=== PATIENT | female | born 1960 | race Caucasian/White ===

== ENCOUNTER 2017-09-17 11:05 | Emergency (ER) | payer SELFPAY ==
[~2017-09-17] VITALS: Ht 157.5 cm; Wt 86.2 kg
[~2017-09-17 11:05] MED LIST: ASPI81EC PO; CEPH500 PO; ESTR2 PO; HRT; HYDCHL25; LISHYD2012 PO; LORA10ER; NAPR250 PO; SIMV10 PO
[2017-09-17 12:39] LABS: Alanine Aminotransfer (ALT/SGP 50 U/L (12-78); Albumin/Globulin Ratio 1.3 (0.8-1.8); Alk Phos 41 U/L (50-136); Anion Gap 10 mmol/L (6-16); Aspartate Aminotrans (AST/SGOT 34 U/L (12-37); Bilirubin, Total 0.5 mg/dL (0.1-1.0); Blood Urea Nitrogen 12 mg/dL (8-24); Bun/Creatinine Ratio 22.1 (12.0-20.0); CO2, Blood 26 mmol/L (21-32); Chloride, Blood 103 mmol/L (98-108); Creatinine, Blood 0.54 mg/dL (0.40-1.00); Globulin, Blood 3.1 g/dL (2.2-4.0); Glomerular Filtration Rate >60 (60-); Glucose, Blood 92 mg/dL (70-99); Potassium, Blood 3.6 mmol/L (3.5-5.5); Sodium, Blood 139 mmol/L (136-145); Total Protein, Blood 7.1 g/dL (6.4-8.2); Troponin I <0.015 ng/mL (0.000-0.040)
[2017-09-17 14:32] LABS: BASOPHILS ABSOLUTE AUTO 0.03 K/mm3 (0.00-0.23); BASOPHILS PERCENT AUTO 0 % (0-2); EOSINOPHILS ABSOLUTE AUTO 0.12 K/mm3 (0.00-0.68); EOSINOPHILS PERCENT AUTO 2 % (0-6); Hematocrit 39.9 % (33.0-51.0); Hemoglobin 14.2 g/dL (11.5-16.0); IMMATURE GRAN ABSOLUTE AUTO 0.02 K/mm3 (0.00-0.10); IMMATURE GRAN PERCENT AUTO 0 % (0-1); LYMPHOCYTES ABSOLUTE AUTO 3.06 K/mm3 (0.84-5.20); LYMPHOCYTES PERCENT AUTO 45 % (21-46); MONOCYTES ABSOLUTE AUTO 0.42 K/mm3 (0.16-1.47); MONOCYTES PERCENT AUTO 6 % (4-13); Mean Corpuscular HGB 30.7 pg (26.0-34.0); Mean Corpuscular HGB Conc 35.6 g/dL (31.5-36.5); Mean Corpuscular Volume 86 fL (80-100); Mean Platelet Volume 9.6 fL (9.1-12.4); NEUTROPHILS ABSOLUTE AUTO 3.18 K/mm3 (1.96-9.15); NEUTROPHILS PERCENT AUTO 47 % (41-73); Platelet Count 196 K/mm3 (150-400); RDW Coefficient Variation 12.4 % (11.7-14.2); RDW Standard Deviation 38.6 fL (35.1-46.3); Red Blood Cell Count 4.63 M/mm3 (3.80-5.20); White Blood Cell Count 6.83 K/mm3 (4.00-11.30)
[2017-09-17 15:54] LABS: Thyroid Stimulating Hormone 5.57 uIU/mL (0.360-4.800)
[2017-09-17 16:26] LABS: Triiodothyronine, Free 2.84 pg/mL (2.18-3.98)
== END 2017-09-17 17:18 | disposition home or self-care (01) ==
LOC: ER 11:05
PROVIDERS: Nurse Practitioner Family; Physician Assistant
DX: E03.9 Hypothyroidism, unspecified (principal); R00.2 Palpitations; Z91.013 Allergy to seafood; Z79.899 Other long term (current) drug therapy; Z79.82 Long term (current) use of aspirin; I10 Essential (primary) hypertension; E78.00 Pure hypercholesterolemia, unspecified
CPT/HCPCS: 36415; 71046; 80053; 83735; 84436; 84439; 84443; 84481; 84484; 85025; 93005; 93010

== ENCOUNTER 2020-06-08 14:26 | Emergency (ER) | payer SELFPAY ==
[~2020-06-08] VITALS: Ht 157.5 cm; Wt 77.1 kg
[~2020-06-08 14:26] MED LIST changes: +Augmentin 875-1 EACH PO; +METO25ER PO
[2020-06-08 14:55] LABS: BASOPHILS ABSOLUTE AUTO 0.02 K/mm3 (0.00-0.23); BASOPHILS PERCENT AUTO 0 % (0-2); EOSINOPHILS ABSOLUTE AUTO 0.14 K/mm3 (0.00-0.68); EOSINOPHILS PERCENT AUTO 2 % (0-6); Hemoglobin 13.5 g/dL (11.5-16.0); IMMATURE GRAN ABSOLUTE AUTO 0.02 K/mm3 (0.00-0.10); IMMATURE GRAN PERCENT AUTO 0 % (0-1); LYMPHOCYTES ABSOLUTE AUTO 3.87 K/mm3 (0.84-5.20); LYMPHOCYTES PERCENT AUTO 50 % (21-46); MONOCYTES ABSOLUTE AUTO 0.53 K/mm3 (0.16-1.47); MONOCYTES PERCENT AUTO 7 % (4-13); Mean Corpuscular HGB 30.8 pg (26.0-34.0); Mean Corpuscular HGB Conc 35.5 g/dL (31.5-36.5); Mean Corpuscular Volume 87 fL (80-100); Mean Platelet Volume 9.5 fL (9.1-12.4); NEUTROPHILS ABSOLUTE AUTO 3.17 K/mm3 (1.96-9.15); NEUTROPHILS PERCENT AUTO 41 % (41-73); Platelet Count 206 K/mm3 (150-400); RDW Coefficient Variation 12.2 % (11.7-14.2); RDW Standard Deviation 38.6 fL (35.1-46.3); Red Blood Cell Count 4.39 M/mm3 (3.80-5.20); White Blood Cell Count 7.75 K/mm3 (4.00-11.30)
[2020-06-08 15:43] LABS: Alanine Aminotransfer (ALT/SGP 33 U/L (12-78); Albumin, Blood 3.5 g/dL (3.4-5.0); Albumin/Globulin Ratio 1.1 (0.8-1.8); Alk Phos 47 U/L (50-136); Anion Gap 5 mmol/L (6-16); Aspartate Aminotrans (AST/SGOT 19 U/L (12-37); Bilirubin, Total 0.6 mg/dL (0.1-1.0); Blood Urea Nitrogen 13 mg/dL (8-24); Bun/Creatinine Ratio 25.9 (12.0-20.0); CO2, Blood 30 mmol/L (21-32); Chloride, Blood 102 mmol/L (98-108); Globulin, Blood 3.3 g/dL (2.2-4.0); Glomerular Filtration Rate >60 (60-); Glucose, Blood 100 mg/dL (70-99); Potassium, Blood 3.5 mmol/L (3.5-5.5); Sodium, Blood 137 mmol/L (136-145); Total Protein, Blood 6.8 g/dL (6.4-8.2); Troponin I <0.015 ng/mL (0.000-0.040)
== END 2020-06-08 20:48 | disposition home or self-care (01) ==
LOC: ER 14:26
PROVIDERS: Physician Assistant
DX: R07.9 Chest pain, unspecified (principal); Z79.82 Long term (current) use of aspirin; Z79.899 Other long term (current) drug therapy
CPT/HCPCS: 36415; 71046; 80053; 84484; 85025; 93005; 93010; 99285-25

== ENCOUNTER → 2021-05-18 | Outpatient (CLI) | payer SELFPAY ==
[2021-05-18 09:46] LABS: BASOPHILS ABSOLUTE AUTO 0.03 K/mm3 (0.00-0.23); BASOPHILS PERCENT AUTO 1 % (0-2); EOSINOPHILS PERCENT AUTO 2 % (0-6); Hematocrit 40.3 % (33.0-51.0); Hemoglobin 14.2 g/dL (11.5-16.0); IMMATURE GRAN ABSOLUTE AUTO 0.01 K/mm3 (0.00-0.10); IMMATURE GRAN PERCENT AUTO 0 % (0-1); LYMPHOCYTES ABSOLUTE AUTO 2.65 K/mm3 (0.84-5.20); LYMPHOCYTES PERCENT AUTO 48 % (21-46); MONOCYTES PERCENT AUTO 7 % (4-13); Mean Corpuscular HGB 30.5 pg (26.0-34.0); Mean Corpuscular HGB Conc 35.2 g/dL (31.5-36.5); Mean Corpuscular Volume 87 fL (80-100); Mean Platelet Volume 9.2 fL (9.1-12.4); NEUTROPHILS ABSOLUTE AUTO 2.36 K/mm3 (1.96-9.15); NEUTROPHILS PERCENT AUTO 43 % (41-73); Platelet Count 185 K/mm3 (150-400); RDW Coefficient Variation 12.4 % (11.7-14.2); RDW Standard Deviation 39.1 fL (35.1-46.3); Red Blood Cell Count 4.65 M/mm3 (3.80-5.20); White Blood Cell Count 5.55 K/mm3 (4.00-11.30)
[2021-05-18 10:05] LABS: Alanine Aminotransfer (ALT/SGP 37 U/L (12-78); Albumin, Blood 3.8 g/dL (3.4-5.0); Albumin/Globulin Ratio 1.1 (0.8-1.8); Alk Phos 52 U/L (40-126); Amylase, Blood 25 U/L (25-115); Anion Gap 8 mmol/L (6-16); Aspartate Aminotrans (AST/SGOT 17 U/L (12-37); Bilirubin, Total 0.7 mg/dL (0.1-1.0); Blood Urea Nitrogen 9 mg/dL (8-24); Bun/Creatinine Ratio 14.5 (12.0-20.0); CO2, Blood 31 mmol/L (21-32); Calcium, Blood 8.9 mg/dL (8.5-10.1); Chloride, Blood 99 mmol/L (98-108); Creatinine, Blood 0.62 mg/dL (0.40-1.00); Globulin, Blood 3.5 g/dL (2.2-4.0); Glomerular Filtration Rate >60 (60-); Glucose, Blood 107 mg/dL (70-99); Potassium, Blood 3.6 mmol/L (3.5-5.5); Sodium, Blood 138 mmol/L (136-145); Total Protein, Blood 7.3 g/dL (6.4-8.2)
== END ==
LOC: LAB SHORT 09:41
PROVIDERS: General Practice
DX: R10.9 Unspecified abdominal pain (principal)
CPT/HCPCS: 80053; 82150; 85025

== ENCOUNTER 2023-01-08 00:07 | Emergency (ER) | payer SELFPAY ==
[~2023-01-08] VITALS: Ht 157.5 cm; Wt 78.9 kg
[2023-01-08] MEDS ORDERED: LEVSOD25 PO (01:10)
[2023-01-08 01:30] LABS: Source, Urine Clean Catch
[2023-01-08 01:49] LABS: Albumin, Blood 3.5 g/dL (3.4-5.0); Albumin/Globulin Ratio 1.1 (0.8-1.8); Bilirubin, Total 0.4 mg/dL (0.1-1.0); Bun/Creatinine Ratio 16.4 (12.0-20.0); Calcium, Blood 8.5 mg/dL (8.5-10.1); Creatinine, Blood 0.61 mg/dL (0.40-1.00); Globulin, Blood 3.2 g/dL (2.2-4.0); Potassium, Blood 3.5 mmol/L (3.5-5.5); Total Protein, Blood 6.7 g/dL (6.4-8.2)
[2023-01-08 01:49] LABS: Bilirubin, Urine Neg (Neg); Blood, Urine Neg (Neg); Glucose Qualitative, Urine 4+ (Neg); Ketones, Urine Neg (Neg); Leukocyte Esterase, Urine Neg (Neg); Nitrite, Urine Neg (Neg); Protein, Urine Neg (Neg); Urobilinogen, Urine NORM (Normal)
[2023-01-08 02:08] LABS: BASOPHILS ABSOLUTE AUTO 0.05 K/mm3 (0.00-0.23); BASOPHILS PERCENT AUTO 1 % (0-2); EOSINOPHILS ABSOLUTE AUTO 0.11 K/mm3 (0.00-0.68); EOSINOPHILS PERCENT AUTO 1 % (0-6); Hematocrit 36.7 % (33.0-51.0); IMMATURE GRAN ABSOLUTE AUTO 0.08 K/mm3 (0.00-0.10); IMMATURE GRAN PERCENT AUTO 1 % (0-1); LYMPHOCYTES ABSOLUTE AUTO 2.05 K/mm3 (0.84-5.20); LYMPHOCYTES PERCENT AUTO 21 % (21-46); MONOCYTES ABSOLUTE AUTO 0.74 K/mm3 (0.16-1.47); MONOCYTES PERCENT AUTO 8 % (4-13); Mean Corpuscular HGB 30.9 pg (26.0-34.0); Mean Corpuscular HGB Conc 35.4 g/dL (31.5-36.5); Mean Corpuscular Volume 87 fL (80-100); NEUTROPHILS ABSOLUTE AUTO 6.64 K/mm3 (1.96-9.15); NEUTROPHILS PERCENT AUTO 69 % (41-73); RDW Standard Deviation 40.7 fL (35.1-46.3); Red Blood Cell Count 4.21 M/mm3 (3.80-5.20); White Blood Cell Count 9.67 K/mm3 (4.00-11.30)
[2023-01-08 02:12] LABS: Mean Platelet Volume 10.8 fL (9.1-12.4)
[2023-01-08 02:22] LABS: Appearance, Urine Clear (Clear); Color, Urine Yellow (P-Yellow)
[2023-01-08] MEDS ORDERED: AMOCLA875 PO (05:17)
[2023-01-08 05:29] VITALS: BP 143/76
== END 2023-01-08 05:39 | disposition home or self-care (01) ==
LOC: ER 00:07
PROVIDERS: Emergency Medicine
DX: K57.32 Diverticulitis of large intestine without perforation or abscess without bleeding (principal); I10 Essential (primary) hypertension; E78.5 Hyperlipidemia, unspecified; E03.9 Hypothyroidism, unspecified; I25.2 Old myocardial infarction
CPT/HCPCS: 74177; 80053; 81003; 85025; 99284-25; A9270; Q9967

== ENCOUNTER → 2024-07-17 | Outpatient (CLI) | payer SELFPAY ==
[~2024-07-17] MED LIST changes: +AMOCLA875 PO; +DOCUZEN 8.6-501 EACH PO; +LEVSOD25 PO; +LISI20 PO; +MIRALAX17 GM PO
[2024-07-17 13:48] LABS: BASOPHILS ABSOLUTE AUTO 0.03 K/mm3 (0.00-0.23); BASOPHILS PERCENT AUTO 0 % (0-2); EOSINOPHILS PERCENT AUTO 1 % (0-6); Hematocrit 40.8 % (33.0-51.0); Hemoglobin 14.4 g/dL (11.5-16.0); IMMATURE GRAN ABSOLUTE AUTO 0.02 K/mm3 (0.00-0.10); IMMATURE GRAN PERCENT AUTO 0 % (0-1); LYMPHOCYTES ABSOLUTE AUTO 2.27 K/mm3 (0.84-5.20); LYMPHOCYTES PERCENT AUTO 29 % (21-46); MONOCYTES ABSOLUTE AUTO 0.61 K/mm3 (0.16-1.47); MONOCYTES PERCENT AUTO 8 % (4-13); Mean Corpuscular HGB Conc 35.3 g/dL (31.5-36.5); Mean Corpuscular Volume 88 fL (80-100); Mean Platelet Volume 8.9 fL (9.1-12.4); NEUTROPHILS ABSOLUTE AUTO 4.74 K/mm3 (1.96-9.15); NEUTROPHILS PERCENT AUTO 61 % (41-73); Platelet Count 187 K/mm3 (150-400); RDW Coefficient Variation 13.2 % (11.7-14.2); RDW Standard Deviation 42.3 fL (35.1-46.3); Red Blood Cell Count 4.65 M/mm3 (3.80-5.20); White Blood Cell Count 7.77 K/mm3 (4.00-11.30)
[2024-07-17 14:03] LABS: Albumin, Blood 3.8 g/dL (3.4-5.0); Albumin/Globulin Ratio 1.1 (0.8-1.8); Bilirubin, Total 1.2 mg/dL (0.1-1.0); Bun/Creatinine Ratio 16.7 (12.0-20.0); Calcium, Blood 9.1 mg/dL (8.5-10.1); Creatinine, Blood 0.54 mg/dL (0.40-1.00); Globulin, Blood 3.4 g/dL (2.2-4.0); Potassium, Blood 3.4 mmol/L (3.5-5.5); Total Protein, Blood 7.2 g/dL (6.4-8.2)
== END ==
LOC: LAB 13:42 → LAB SHORT 13:42
PROVIDERS: Emergency Medicine
DX: R10.9 Unspecified abdominal pain (principal)
CPT/HCPCS: 80053; 83690; 85025; 87086

== ENCOUNTER 2024-07-18 21:09 | Inpatient (IN) | payer SELFPAY ==
[~2024-07-18] VITALS: Ht 157.5 cm; Wt 80.2 kg
[~2024-07-18 21:09] MED LIST changes: -DOCUZEN 8.6-501 EACH PO; -LISI20 PO; -MIRALAX17 GM PO
[2024-07-18 22:11] LABS: BASOPHILS ABSOLUTE AUTO 0.03 K/mm3 (0.00-0.23); BASOPHILS PERCENT AUTO 0 % (0-2); EOSINOPHILS ABSOLUTE AUTO 0.06 K/mm3 (0.00-0.68); EOSINOPHILS PERCENT AUTO 1 % (0-6); Hematocrit 38.1 % (33.0-51.0); Hemoglobin 13.9 g/dL (11.5-16.0); IMMATURE GRAN ABSOLUTE AUTO 0.02 K/mm3 (0.00-0.10); IMMATURE GRAN PERCENT AUTO 0 % (0-1); LYMPHOCYTES ABSOLUTE AUTO 2.65 K/mm3 (0.84-5.20); LYMPHOCYTES PERCENT AUTO 24 % (21-46); MONOCYTES ABSOLUTE AUTO 1.03 K/mm3 (0.16-1.47); MONOCYTES PERCENT AUTO 9 % (4-13); Mean Corpuscular HGB 31.5 pg (26.0-34.0); Mean Corpuscular HGB Conc 36.5 g/dL (31.5-36.5); Mean Corpuscular Volume 86 fL (80-100); Mean Platelet Volume 9.2 fL (9.1-12.4); NEUTROPHILS PERCENT AUTO 66 % (41-73); Platelet Count 193 K/mm3 (150-400); RDW Coefficient Variation 12.8 % (11.7-14.2); RDW Standard Deviation 40.7 fL (35.1-46.3); Red Blood Cell Count 4.41 M/mm3 (3.80-5.20); White Blood Cell Count 11.09 K/mm3 (4.00-11.30)
[2024-07-18 22:30] LABS: Albumin, Blood 3.5 g/dL (3.4-5.0); Albumin/Globulin Ratio 0.9 (0.8-1.8); Bilirubin, Total 1.1 mg/dL (0.1-1.0); Bun/Creatinine Ratio 14.1 (12.0-20.0); Calcium, Blood 8.9 mg/dL (8.5-10.1); Creatinine, Blood 0.5 mg/dL (0.40-1.00); Globulin, Blood 3.7 g/dL (2.2-4.0); Potassium, Blood 3.2 mmol/L (3.5-5.5); Total Protein, Blood 7.2 g/dL (6.4-8.2)
[2024-07-18 22:32] LABS: Source, Urine Clean Catch
[2024-07-18 22:40] LABS: Bilirubin, Urine Neg (Neg); Blood, Urine 1+ (Neg); Glucose Qualitative, Urine Neg (Neg); Ketones, Urine 3+ (Neg); Leukocyte Esterase, Urine Neg (Neg); Nitrite, Urine Neg (Neg); Protein, Urine 1+ (Neg); Urobilinogen, Urine NORM (Normal)
[2024-07-18 22:53] LABS: Appearance, Urine Clear (Clear); Color, Urine Yellow (P-Yellow)
[2024-07-18 22:54] LABS: Bacteria Few /hpf; Red Blood Cells, Urine 0-2 /hpf (0-2); Squamous Epithelial Cells Mod /hpf (Few); White Blood Cells, Urine 0-2 /hpf (0-5)
[2024-07-19] MEDS ORDERED: Piperacillin/Tazobactam Sod 4.5 GM in NS 100 ML IV ONE (00:40)
[2024-07-19] MEDS ORDERED: Potassium Chloride 40 MEQ in NS 250 ML IV ONE (00:45)
[2024-07-19] MEDS ORDERED: NS 1,000 ML IV SCH (00:45)
[2024-07-19] MEDS ORDERED: Acetaminophen 500 MG Tab PO ONE (00:45)
[2024-07-19] MEDS ORDERED: NS 1,000 ML IV ONE (01:05)
[2024-07-19] MEDS ORDERED: Ondansetron HCl 2 MG / ML 2ML Vial IV PRN (01:05)
[2024-07-19] MEDS ORDERED: FentaNYL Citrate 50 MCG/ML 2 ML Injection IV PRN (01:05)
[2024-07-19] MEDS ORDERED: Acetaminophen 325 MG TABLET PO PRN (01:05)
[2024-07-19] MEDS ORDERED: Ondansetron HCl 2 MG / ML 2ML Vial IV ONE (01:20)
[2024-07-19 04:28] VITALS: BP 148/86
[2024-07-19] MEDS ORDERED: NS 250 ML IV PRN (05:00)
--- NOTE | 2024-07-19 05:28 | NUR ---
0350 REPORT RECEIVED FROM ED RN JANIYA. PT ARRIVED TO THE MEDICAL FLOOR ON A GURNEY AND TRANSFERRED TO THE HOSPITAL BED INDEPENDENTLY. PT BROUGHT ALL HER BELONINGS WITH HER. CHARGE NURSE KATIA COMPLETED THE ADMISSION ASSESSMENT. MED REC COMPLETED BY THIS NURSE. MISSING MEDICATION FROM THE MED REC IS PT'S ESTROGEN PATCH, PT DOES NOT REMEMBER NAME OR DOSE OF THE MEDICATION. PATCH ORDER IS [id number]. PER PT REPORT, SHE IS NO LONGER TAKING PO ESTROGEN PLACEMENT MEDICATION. PT IS A/O X4, AMBULATORY. TELE: NSR @76. ON RA. IV @LAC. CURRENTLY IV POTASSIUM CONTINUING TO INFUSE (ER ORDER). EDUCATED LEAD ELECTRICAL CONTROLS ENGINEER LIGHT, NON-SLIP SOCKS PROVIDED. BED AT THE LOWEST POSITION, CALL LIGHT W/I REACH. PT ABLE TO MAKE HER NEEDS KNOWN AND COOPERATIVE WITH CARE.
[2024-07-19] MEDS ORDERED: Piperacillin/Tazobactam Sod 4.5 GM in NS 100 ML IV SCH (06:00)
[2024-07-19] MEDS ORDERED: OxyCODONE HCL 5 MG TAB PO PRN (07:30)
[2024-07-19 07:45] VITALS: BP 122/72
[2024-07-19 11:01] VITALS: BP 109/74
[2024-07-19 11:46] LABS: BASOPHILS ABSOLUTE AUTO 0.03 K/mm3 (0.00-0.23); BASOPHILS PERCENT AUTO 0 % (0-2); EOSINOPHILS ABSOLUTE AUTO 0.08 K/mm3 (0.00-0.68); EOSINOPHILS PERCENT AUTO 1 % (0-6); Hematocrit 32.4 % (33.0-51.0); Hemoglobin 11.7 g/dL (11.5-16.0); IMMATURE GRAN ABSOLUTE AUTO 0.02 K/mm3 (0.00-0.10); IMMATURE GRAN PERCENT AUTO 0 % (0-1); LYMPHOCYTES ABSOLUTE AUTO 2.13 K/mm3 (0.84-5.20); LYMPHOCYTES PERCENT AUTO 30 % (21-46); MONOCYTES ABSOLUTE AUTO 0.78 K/mm3 (0.16-1.47); MONOCYTES PERCENT AUTO 11 % (4-13); Mean Corpuscular HGB 31.8 pg (26.0-34.0); Mean Corpuscular HGB Conc 36.1 g/dL (31.5-36.5); Mean Corpuscular Volume 88 fL (80-100); Mean Platelet Volume 9.6 fL (9.1-12.4); NEUTROPHILS ABSOLUTE AUTO 4.01 K/mm3 (1.96-9.15); NEUTROPHILS PERCENT AUTO 57 % (41-73); Platelet Count 184 K/mm3 (150-400); RDW Coefficient Variation 13.1 % (11.7-14.2); RDW Standard Deviation 42.2 fL (35.1-46.3); Red Blood Cell Count 3.68 M/mm3 (3.80-5.20); White Blood Cell Count 7.05 K/mm3 (4.00-11.30)
[2024-07-19 12:16] LABS: Albumin, Blood 2.9 g/dL (3.4-5.0); Bilirubin, Total 0.8 mg/dL (0.1-1.0); Calcium, Blood 8.3 mg/dL (8.5-10.1); Creatinine, Blood 0.43 mg/dL (0.40-1.00); Potassium, Blood 3.8 mmol/L (3.5-5.5); Total Protein, Blood 5.9 g/dL (6.4-8.2)
[2024-07-19 14:49] VITALS: BP 110/75
--- NOTE | 2024-07-19 17:18 | NUR ---
A&Ox4, FULL CODE, ON TELE, HAD IV POTASSIUM THIS AM, SOFT BITE SIZE FOODS DAIRY & GLUTTEN FREE, DIETITIAN CONSULT, INDEPENDENT IN ROOM & TO BATHROOM, ANTIBIOTICS CONTINUED
--- NOTE | 2024-07-19 18:26 | NUR ---
REVIEWED CHARTING ENTERED BY PAT BARON, STUDENT NURSE AND I AGREE WITH HER DOCUMENTATION FOR THIS PATIENT.
[2024-07-19 19:28] VITALS: BP 118/74
[2024-07-19] MEDS ORDERED: Metoprolol Succinate 25 MG TABCR PO SCH (21:00)
--- NOTE | 2024-07-20 03:53 | NUR ---
SHIFT SUMMARY A/OX4, UP IND IN ROOM. C/O MILD ABD PAIN, MEDICATED PER EMAR. TELE SR. DENIES CHEST PAIN/SOB. IV ABX GIVEN. PLAN IS POSSIBLE D/C TODAY. VSS, NO ACUTE CHANGES AT THIS TIME.
[2024-07-20 05:04] LABS: Hematocrit 33.8 % (33.0-51.0); Hemoglobin 11.8 g/dL (11.5-16.0); Mean Corpuscular HGB 31.2 pg (26.0-34.0); Mean Corpuscular HGB Conc 34.9 g/dL (31.5-36.5); Mean Corpuscular Volume 89 fL (80-100); Mean Platelet Volume 9.2 fL (9.1-12.4); Platelet Count 177 K/mm3 (150-400); RDW Coefficient Variation 13.2 % (11.7-14.2); RDW Standard Deviation 43.8 fL (35.1-46.3); Red Blood Cell Count 3.78 M/mm3 (3.80-5.20); White Blood Cell Count 4.22 K/mm3 (4.00-11.30)
[2024-07-20 05:14] VITALS: BP 132/72
[2024-07-20 05:22] LABS: Albumin, Blood 2.9 g/dL (3.4-5.0); Anion Gap 7 mmol/L (3-11); Blood Urea Nitrogen 6 mg/dL (8-24); Bun/Creatinine Ratio 12.3 (12.0-20.0); CO2, Blood 25 mmol/L (21-32); Calcium, Blood 8.4 mg/dL (8.5-10.1); Chloride, Blood 109 mmol/L (98-108); Creatinine, Blood 0.49 mg/dL (0.40-1.00); Glomerular Filtration Rate 105 (60-); Glucose, Blood 100 mg/dL (70-99); Magnesium, Blood 2.2 mg/dL (1.6-2.4); Phosphorus, Blood 2.4 mg/dL (2.5-4.9); Potassium, Blood 3.9 mmol/L (3.5-5.5); Sodium, Blood 137 mmol/L (136-145)
[2024-07-20] MEDS ORDERED: Levothyroxine Sodium 0.025 MG Tab PO SCH (06:00)
[2024-07-20 08:00] VITALS: BP 117/95
[2024-07-20] MEDS ORDERED: Lisinopril 20 MG Tab PO SCH (09:00)
[2024-07-20] MEDS ORDERED: Polyethylene Glycol 3350 17 gm PO ONE (09:45)
[2024-07-20] MEDS ORDERED: Polyethylene Glycol 3350 17 gm PO PRN (09:50)
[2024-07-20] MEDS ORDERED: Bisacodyl 5 MG TabEC PO PRN (09:55)
[2024-07-20] MEDS ORDERED: Docusate Sodium/Senna 1 Tab PO SCH (10:00)
[2024-07-20] MEDS ORDERED: LISI20 PO (13:36)
[2024-07-20] MEDS ORDERED: DOCUZEN 8.6-501 EACH PO (13:37)
[2024-07-20] MEDS ORDERED: AMOCLA875 PO (13:40)
[2024-07-20] MEDS ORDERED: MIRALAX17 GM PO (13:40)
--- NOTE | 2024-07-20 14:36 | NUR ---
PT WAS GIVEN DISCHARGE INSTRUCTIONS & EDUCATION, MEDICATIONS FAXED TO [facility], DISCHARGE HOME WITH , WILL CALL FOR FOLLOW UP APPTS NEEDED
--- NOTE | 2024-07-20 14:56 | NUR ---
Pt. is awake and standing in her room preparing to be discharged home when she welcomed my visit. Pt. is pleasant and recognized this general helper form the community. Pt. verbalized her proposed medical plan. Considered matters of estefanía , belief and ministry. Pt. verbalized that she and her spouse were hosting several young people in their home this very evening. Pt. displayed evidence of being very aware of her condition and trusting of her medical caregivers. Prayed with Pt. Pt. displayed evidence of gratitude for the spiritual care visit.
== END 2024-07-20 14:28 | disposition home or self-care (01) | DRG 392 ==
LOC: ER 21:09 → MEDS 07-19 00:54 → ERHOLD 07-19 00:54 → MEDS 07-19 04:24
PROVIDERS: Internal Medicine; Student in an Organized Health Care Education/Training Program; ADMIT Internal Medicine
DX: K57.20 Diverticulitis of large intestine with perforation and abscess without bleeding (principal); E87.1 Hypo-osmolality and hyponatremia; I10 Essential (primary) hypertension; E03.9 Hypothyroidism, unspecified; E87.6 Hypokalemia; R73.9 Hyperglycemia, unspecified; E80.6 Other disorders of bilirubin metabolism; K52.9 Noninfective gastroenteritis and colitis, unspecified; K76.0 Fatty (change of) liver, not elsewhere classified; E78.5 Hyperlipidemia, unspecified; K21.9 Gastro-esophageal reflux disease without esophagitis; I25.10 Atherosclerotic heart disease of native coronary artery without angina pectoris; K63.5 Polyp of colon; I25.2 Old myocardial infarction; Z88.5 Allergy status to narcotic agent; Z79.82 Long term (current) use of aspirin; Z79.890 Hormone replacement therapy
CPT/HCPCS: 36415; 74177; 80053; 80069; 81001; 83605; 83690; 83735; 83880; 85025; 85027; 99285-25; A9270; J2405; J2543; J3480; J7030; J7050; Q9967

== ENCOUNTER 2024-07-21 02:40 | Observation (INO) | payer SELFPAY ==
[~2024-07-21] VITALS: Ht 157.5 cm; Wt 79.4 kg
[~2024-07-21 02:40] MED LIST changes: +DOCUZEN 8.6-501 EACH PO; +LISI20 PO; +MIRALAX17 GM PO
[2024-07-21] MEDS ORDERED: NS 1,000 ML IV SCH (03:15)
[2024-07-21] MEDS ORDERED: Ondansetron HCl 2 MG / ML 2ML Vial IV ONE (03:15)
[2024-07-21] MEDS ORDERED: FentaNYL Citrate 50 MCG/ML 2 ML Injection IV ONE (03:15)
[2024-07-21 03:20] LABS: BASOPHILS ABSOLUTE AUTO 0.01 K/mm3 (0.00-0.23); BASOPHILS PERCENT AUTO 0 % (0-2); EOSINOPHILS ABSOLUTE AUTO 0.06 K/mm3 (0.00-0.68); EOSINOPHILS PERCENT AUTO 1 % (0-6); Hematocrit 39.3 % (33.0-51.0); Hemoglobin 13.8 g/dL (11.5-16.0); IMMATURE GRAN ABSOLUTE AUTO 0.02 K/mm3 (0.00-0.10); IMMATURE GRAN PERCENT AUTO 0 % (0-1); LYMPHOCYTES ABSOLUTE AUTO 0.92 K/mm3 (0.84-5.20); LYMPHOCYTES PERCENT AUTO 11 % (21-46); MONOCYTES ABSOLUTE AUTO 0.59 K/mm3 (0.16-1.47); MONOCYTES PERCENT AUTO 7 % (4-13); Mean Corpuscular HGB 30.7 pg (26.0-34.0); Mean Corpuscular HGB Conc 35.1 g/dL (31.5-36.5); Mean Corpuscular Volume 88 fL (80-100); Mean Platelet Volume 9.2 fL (9.1-12.4); NEUTROPHILS ABSOLUTE AUTO 6.66 K/mm3 (1.96-9.15); NEUTROPHILS PERCENT AUTO 81 % (41-73); Platelet Count 192 K/mm3 (150-400); RDW Coefficient Variation 12.9 % (11.7-14.2); RDW Standard Deviation 41.6 fL (35.1-46.3); Red Blood Cell Count 4.49 M/mm3 (3.80-5.20); White Blood Cell Count 8.26 K/mm3 (4.00-11.30)
[2024-07-21 03:34] LABS: Bun/Creatinine Ratio 24.2 (12.0-20.0); Calcium, Blood 8.8 mg/dL (8.5-10.1); Creatinine, Blood 0.46 mg/dL (0.40-1.00); Potassium, Blood 3.7 mmol/L (3.5-5.5)
[2024-07-21 04:35] LABS: Source, Urine Clean Catch
[2024-07-21 04:43] LABS: Bilirubin, Urine Neg (Neg); Blood, Urine Neg (Neg); Glucose Qualitative, Urine Neg (Neg); Ketones, Urine 3+ (Neg); Leukocyte Esterase, Urine Neg (Neg); Nitrite, Urine Neg (Neg); Protein, Urine 1+ (Neg); Specific Gravity, Urine 1.015 (1.003-1.022); Urobilinogen, Urine NORM (Normal)
[2024-07-21 04:48] LABS: Appearance, Urine Clear (Clear); Color, Urine Yellow (P-Yellow)
[2024-07-21] MEDS ORDERED: Piperacillin/Tazobactam Sod 4.5 GM in NS 100 ML IV ONE (05:10)
[2024-07-21] MEDS ORDERED: NS 1,000 ML IV ONE (06:20)
[2024-07-21] MEDS ORDERED: Ondansetron HCl 2 MG / ML 2ML Vial IV PRN (06:20)
[2024-07-21] MEDS ORDERED: Loperamide HCl 2 MG Cap PO PRN (06:20)
[2024-07-21] MEDS ORDERED: FentaNYL Citrate 50 MCG/ML 2 ML Injection IV PRN (06:20)
[2024-07-21] MEDS ORDERED: Piperacillin/Tazobactam Sod 4.5 GM in NS 100 ML IV SCH (06:30)
[2024-07-21 08:09] VITALS: BP 169/83
[2024-07-21] MEDS ORDERED: MetroNIDAZOLE 500 MG Tab PO SCH (09:00)
[2024-07-21] MEDS ORDERED: Ciprofloxacin 500 MG Tab PO SCH (09:00)
--- NOTE | 2024-07-21 13:55 | NUR ---
PT REFUSED WEARING SCD'S AT ABOUT 1130. PT EDUCATED ON RISK
[2024-07-21 15:21] VITALS: BP 138/70
--- NOTE | 2024-07-21 16:49 | NUR ---
Pt. is awake and sitting in bed when she welcomes my visit. Pt. is pleasant and verbalizes her journey from yesterday's discharge to today's readmission. Matters of estefanía and belief are considered, and well as the Pts. visit with one of the administrators during administrative rounds. Pt. displayed evidence of awareness and engagement, and verbalized gratitude for the spiritual care visit. The Pt. welcomed this coat tailor to return tomorrow.
--- NOTE | 2024-07-21 18:12 | NUR ---
SUMMARY: PT IS A/O, VSS. FLUIDS INFUSING, PT HAS DENIED N/V, NO EMESIS. TELE UNCHANGED. PT INDEP IN ROOM, HAS HAD SEVERAL LOOSE BM'S. TOLERATING FULL LIQ DIET, DENIES PAIN. GIVEN PO ANTIBIOTICS PER ORDER. NO ACUTE CONCERNS
[2024-07-21 19:28] VITALS: BP 114/71
[2024-07-21] MEDS ORDERED: Acetaminophen 500 MG Tab PO PRN (22:00)
[2024-07-21] MEDS ORDERED: Melatonin 5 MG Tablet PO PRN (22:05)
--- NOTE | 2024-07-21 23:00 | NUR ---
UPDATE PT REFUSED IVF STATING SHE CANT SLEEP WITH IT AND IS DRINKING FLUIDS. RISK VS BENEFIT EDUCATION PROVIDED. PT VERBALIZED UNDERSTANDING AND CONT TO DECLINE.
[2024-07-22 00:12] VITALS: BP 137/77
[2024-07-22 05:03] VITALS: BP 125/54
[2024-07-22 06:03] LABS: BASOPHILS ABSOLUTE AUTO 0.02 K/mm3 (0.00-0.23); BASOPHILS PERCENT AUTO 0 % (0-2); EOSINOPHILS PERCENT AUTO 4 % (0-6); Hemoglobin 11.5 g/dL (11.5-16.0); IMMATURE GRAN ABSOLUTE AUTO 0.02 K/mm3 (0.00-0.10); IMMATURE GRAN PERCENT AUTO 0 % (0-1); LYMPHOCYTES ABSOLUTE AUTO 2.18 K/mm3 (0.84-5.20); LYMPHOCYTES PERCENT AUTO 45 % (21-46); MONOCYTES ABSOLUTE AUTO 0.46 K/mm3 (0.16-1.47); MONOCYTES PERCENT AUTO 10 % (4-13); Mean Corpuscular HGB 31.3 pg (26.0-34.0); Mean Corpuscular HGB Conc 34.8 g/dL (31.5-36.5); Mean Corpuscular Volume 90 fL (80-100); Mean Platelet Volume 9.4 fL (9.1-12.4); NEUTROPHILS ABSOLUTE AUTO 1.95 K/mm3 (1.96-9.15); NEUTROPHILS PERCENT AUTO 41 % (41-73); Platelet Count 177 K/mm3 (150-400); RDW Coefficient Variation 13.2 % (11.7-14.2); RDW Standard Deviation 43.6 fL (35.1-46.3); Red Blood Cell Count 3.68 M/mm3 (3.80-5.20); White Blood Cell Count 4.83 K/mm3 (4.00-11.30)
--- NOTE | 2024-07-22 06:03 | NUR ---
SHIFT SUMMARY NO ACUTE CHANGES T/O NIGHT. PT A/OX4 WITH VSS. MEDICATED X 1 FOR MILD NAUSEA AT START OF SHIFT. DENIES N/V OR DIARRHEA SX OTHERWISE AND IS HOLA PO INTAKE. PT IS VOIDING. IND IN ROOM. REPORTS SLEEPING WELL. PT ON PHONE IN BED. HAS CALL LIGHT IN REACH AND ABLE TO MAKE NEEDS KNOWN. PT EAGER TO GO HOME ,IF POSSIBLE TODAY. WILL GIVE REPORT TO ONCOMING RN.
[2024-07-22 06:28] LABS: Albumin, Blood 2.8 g/dL (3.4-5.0); Bilirubin, Total 0.4 mg/dL (0.1-1.0); Bun/Creatinine Ratio 7.7 (12.0-20.0); Calcium, Blood 8.2 mg/dL (8.5-10.1); Creatinine, Blood 0.39 mg/dL (0.40-1.00); Globulin, Blood 2.7 g/dL (2.2-4.0); Potassium, Blood 3.2 mmol/L (3.5-5.5); Total Protein, Blood 5.5 g/dL (6.4-8.2)
--- NOTE | 2024-07-22 06:36 | NUR ---
UPDATE GI PANEL D/C PER INFECTION CONTROL.
[2024-07-22 07:07] VITALS: BP 136/73
[2024-07-22] MEDS ORDERED: Potassium Chloride 20 MEQ TabCR PO ONE (08:05)
[2024-07-22] MEDS ORDERED: METR500 PO (11:10)
[2024-07-22] MEDS ORDERED: CIPR500 PO (11:10)
[2024-07-22] MEDS ORDERED: ONDA4ODT MM (11:11)
[2024-07-22] MEDS ORDERED: VISBIOME 112.51 EACH PO (11:25)
[2024-07-22 12:27] VITALS: BP 138/73
--- NOTE | 2024-07-22 12:39 | NUR ---
DISCHARGED REVIEWED DC INSTRUCTIONS W/PT;VERBALIZED UNDERSTANDING. PRESCRIPTIONS FAXED TO [facility] PER PT REQUEST. PT DECLINED WC AND LEFT BY AMBULATION W/POSSESSIONS AND DC PAPERWORK IN HAND, ACCOMPANIED BY SO.
== END 2024-07-22 12:53 | disposition home or self-care (01) ==
LOC: ER 02:40 → SURS 05:25 → MEDS 05:25 → SURS 07:35
PROVIDERS: Student in an Organized Health Care Education/Training Program; ADMIT Internal Medicine
DX: K57.20 Diverticulitis of large intestine with perforation and abscess without bleeding (principal); E03.9 Hypothyroidism, unspecified; E78.5 Hyperlipidemia, unspecified; I10 Essential (primary) hypertension; I25.10 Atherosclerotic heart disease of native coronary artery without angina pectoris; I25.2 Old myocardial infarction; K90.41 Non-celiac gluten sensitivity; K21.9 Gastro-esophageal reflux disease without esophagitis; Z79.82 Long term (current) use of aspirin; Z79.899 Other long term (current) drug therapy; Z88.5 Allergy status to narcotic agent; Z91.013 Allergy to seafood
CPT/HCPCS: 36415; 74177; 80048; 80053; 85025; 93005; 93010; 96361; 96365; 96365-59; 96375; 99285-25; A9270; G0378; J2405; J2543; J3010; J7030; Q9967

== ENCOUNTER 2024-10-07 07:02 | Day surgery (SDC) | payer OTHER ==
[~2024-10-07] VITALS: Ht 157.5 cm; Wt 79.6 kg
[~2024-10-07 07:02] MED LIST changes: +CIPR500 PO; +METR500 PO; +ONDA4ODT MM; +VISBIOME 112.51 EACH PO
[2024-10-07] MEDS ORDERED: ESTRADIOL1 EAC2 (07:55)
[2024-10-07] MEDS ORDERED: LISINOPRIL-HCT1 EACH (07:57)
[2024-10-07] MEDS ORDERED: CRINONE1.125 GM (07:59)
[2024-10-07] MEDS ORDERED: TESTOSTERONE50 MG (08:00)
[2024-10-07] MEDS ORDERED: Lidocaine HCl 2% Jelly 120MG/6ML SYR (20MG PER ML) ONE (09:39)
[2024-10-07 10:22] VITALS: BP 132/80
== END 2024-10-07 10:20 | disposition home or self-care (01) ==
LOC: ORSCSDS 07:02
PROVIDERS: Surgery
PROC: 0DBK8ZX Excision of Ascending Colon, Via Natural or Artificial Opening Endoscopic, Diagnostic (ICD-10-PCS; principal; 2024-10-07 08:45)
DX: Z12.11 Encounter for screening for malignant neoplasm of colon (principal); Z86.0101 Personal history of adenomatous and serrated colon polyps; D12.2 Benign neoplasm of ascending colon; K57.30 Diverticulosis of large intestine without perforation or abscess without bleeding; K76.0 Fatty (change of) liver, not elsewhere classified; K21.9 Gastro-esophageal reflux disease without esophagitis; I10 Essential (primary) hypertension; Z79.82 Long term (current) use of aspirin; Z79.899 Other long term (current) drug therapy
CPT/HCPCS: 88305; A9270; J2704; J7120

== ENCOUNTER 2024-11-10 13:55 | Emergency (ER) | payer OTHER ==
[~2024-11-10] VITALS: Ht 157.5 cm; Wt 78.5 kg
[~2024-11-10 13:55] MED LIST changes: +CRINONE1.125 GM; +ESTRADIOL1 EAC2; +LISINOPRIL-HCT1 EACH; +TESTOSTERONE50 MG
[2024-11-10 14:18] VITALS: BP 129/78
[2024-11-10 14:26] LABS: BASOPHILS ABSOLUTE AUTO 0.04 K/mm3 (0.00-0.23); BASOPHILS PERCENT AUTO 1 % (0-2); EOSINOPHILS ABSOLUTE AUTO 0.09 K/mm3 (0.00-0.68); EOSINOPHILS PERCENT AUTO 2 % (0-6); Hematocrit 37.5 % (33.0-51.0); Hemoglobin 13.6 g/dL (11.5-16.0); IMMATURE GRAN ABSOLUTE AUTO 0.01 K/mm3 (0.00-0.10); IMMATURE GRAN PERCENT AUTO 0 % (0-1); LYMPHOCYTES ABSOLUTE AUTO 2.65 K/mm3 (0.84-5.20); LYMPHOCYTES PERCENT AUTO 49 % (21-46); MONOCYTES ABSOLUTE AUTO 0.47 K/mm3 (0.16-1.47); MONOCYTES PERCENT AUTO 9 % (4-13); Mean Corpuscular HGB Conc 36.3 g/dL (31.5-36.5); Mean Corpuscular Volume 87 fL (80-100); NEUTROPHILS ABSOLUTE AUTO 2.17 K/mm3 (1.96-9.15); NEUTROPHILS PERCENT AUTO 40 % (41-73); NRBC ABSOLUTE 0.00 K/mm3 (0.00-0.02); NRBC Auto 0.0 /100 WBC (0.0-0.2); Platelet Count 181 K/mm3 (150-400); RDW Coefficient Variation 12.3 % (11.7-14.2); RDW Standard Deviation 39.2 fL (35.1-46.3)
[2024-11-10 14:45] LABS: Alanine Aminotransfer (ALT/SGP 29.0 U/L (12-78); Albumin, Blood 3.5 g/dL (3.4-5.0); Albumin/Globulin Ratio 1.2 (0.8-1.8); Anion Gap 7.0 mmol/L (3-11); Aspartate Aminotrans (AST/SGOT 17.0 U/L (12-37); Bilirubin, Total 0.6 mg/dL (0.1-1.0); Blood Urea Nitrogen 15.0 mg/dL (8-24); CO2, Blood 29.0 mmol/L (21-32); Calcium, Blood 8.6 mg/dL (8.5-10.1); Chloride, Blood 107.0 mmol/L (98-108); Creatinine, Blood 0.57 mg/dL (0.40-1.00); Globulin, Blood 2.9 g/dL (2.2-4.0); Glucose, Blood 116.0 mg/dL (70-99); Potassium, Blood 3.6 mmol/L (3.5-5.5); Sodium, Blood 139.0 mmol/L (136-145); Total Protein, Blood 6.4 g/dL (6.4-8.2)
== END 2024-11-10 17:11 | disposition home or self-care (01) ==
LOC: ER 13:55
PROVIDERS: Physician Assistant
DX: R00.2 Palpitations (principal); Q23.81 Bicuspid aortic valve; I10 Essential (primary) hypertension; E78.00 Pure hypercholesterolemia, unspecified; I25.2 Old myocardial infarction; Z79.82 Long term (current) use of aspirin; Z79.890 Hormone replacement therapy; Z79.899 Other long term (current) drug therapy
CPT/HCPCS: 71046; 80053; 83690; 84484; 85025; 93005; 93010; 99285-25